=== PATIENT | female | born 1990 ===

== ENCOUNTER → 2019-12-30 | Outpatient (REF) | LOC: M LAB LCGH 10:17 | PROVIDERS: ATTEND Obstetrics & Gynecology Reproductive Endocrinology | DX: Z00.00 Encounter for general adult medical examination without abnormal findings (principal) ==

== ENCOUNTER → 2022-02-28 | Outpatient (REF) | LOC: M LAB LCGH 10:45 | PROVIDERS: ATTEND Obstetrics & Gynecology Obstetrics | DX: Z00.00 Encounter for general adult medical examination without abnormal findings (principal) ==